=== PATIENT | male | born 1975 | race Caucasian/White ===

== ENCOUNTER 2017-12-01 11:32 | Day surgery (SDC) | payer OTHER ==
[2017-12-01] MEDS ORDERED: FENTANYL PF 100MCG/2ML VIAL IV ONE (11:33)
[2017-12-01] MEDS ORDERED: LIDOCAINE 2% MDV (20MG/ML) 20ML VIAL IV ONE (11:33)
[2017-12-01] MEDS ORDERED: PROPOFOL 10 MG/ML VIAL IV ONE (11:33)
--- NOTE | 2017-12-02 12:40 | Operative Note ---
DATE OF SURGERY: 12/01/2017 OPERATION: 1. ESOPHAGOGASTRODUODENOSCOPY with biopsy. 2. COLONOSCOPY with random biopsy and polypectomy. PREOPERATIVE DIAGNOSIS: Weight loss, diarrhea, hematochezia, right upper quadrant pain. POSTOPERATIVE DIAGNOSES: 1. Normal-appearing duodenum and stomach, rule out occult H pylori and occult celiac. 2. 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 3. Ascending colon diverticula. 4. Sigmoid colon polyps. 5. Otherwise normal colon with random biopsies. PROCEDURE: After informed consent was obtained from the patient, he was placed in the left lateral decubitus position in the endoscopy suite, sedated and monitored by the department of anesthesia. A well-lubricated [id number] gastroscope was placed in the posterior oropharynx and under direct visualization passed to the proximal esophagus. The endoscope was advanced through the proximal, mid, and distal esophagus. In the distal esophagus, there were ulcerative changes and proximal migration of the columnar border suggestive of Vanegas's as well as LA grade C/D esophagitis. There is a small hiatal hernia. The gastric body, antrum, pylorus, duodenal bulb, and sweep are unremarkable. Random duodenal biopsies were obtained to rule out occult celiac sprue, random gastric biopsies obtained to rule out H pylori. J-turn views of the proximal stomach revealed a small hiatal hernia. The endoscope was straightened and distal esophageal biopsies were obtained. The endoscope removed from the patient. Digital rectal exam was unremarkable. A well-lubricated [id number] colonoscope was inserted into the rectum and advanced to the cecum. Preparation quality was good to excellent. The cecum, terminal ileum, and ascending colon were unremarkable other than scattered diverticula in the ascending colon. The cecum and terminal ileum were unremarkable. The transverse colon and descending colon were unremarkable. Random biopsies were obtained to rule out microscopic colitis. The sigmoid colon revealed 2 polyps approximately 5-6 mm in diameter and each sessile, each removed with a cold snare with minimal bleeding noted at the sites. The remainder of the sigmoid colon and rectum were unremarkable. J-turn views of the anorectum were unremarkable. The endoscope was straightened, the rectal ampulla deflated, and the endoscope was removed. RECOMMENDATIONS: I would suggest the patient be on a [id number] PPI. He should undergo repeat endoscopy in 8 weeks, also repeat colonoscopy in 3-5 years would be suggested. Further recommendations will also be forthcoming once tissue histology is available. As always, thank you for allowing me to participate in the healthcare of your patients. CC: DO ANGEL Phillip
== END 2017-12-01 13:00 | disposition home or self-care (01) ==
LOC: HOP 11:32
PROVIDERS: ATTEND Internal Medicine Gastroenterology
DX: R63.4 Abnormal weight loss (principal); R19.7 Diarrhea, unspecified; K92.1 Melena; R10.11 Right upper quadrant pain; K22.70 Barrett's esophagus without dysplasia; D12.5 Benign neoplasm of sigmoid colon; K57.30 Diverticulosis of large intestine without perforation or abscess without bleeding; K44.9 Diaphragmatic hernia without obstruction or gangrene; J45.909 Unspecified asthma, uncomplicated
CPT/HCPCS: 45385; 43235; 00813; J3010

== ENCOUNTER 2017-12-06 10:08 | Emergency (ER) | payer OTHER ==
[2017-12-06] MEDS ORDERED: HYDROMORPHONE HCL 1 MG/ML SYRINGE IVP ONE ×2 (10:55→14:37)
[2017-12-06] MEDS ORDERED: ONDANSETRON HCL IV 4 MG/2 ML VIAL IVP ONE (10:55)
[2017-12-06 11:28] LABS: BASO % 0.6 % (0-6); EOS % 2.2 % (0-6); GRAN % 74.2 % (47-80); HEMATOCRIT 43.9 % (42.0-52.0); HEMOGLOBIN 14.9 gm/dl (14.0-18.0); LYMPH % 16.7 % (16-45); MEAN CORPUSCULAR HEMOGLOBIN 29.9 pg (27-33); MEAN CORPUSCULAR HGB CONC 33.9 g/dl (32-36); MONO % 6.3 % (0-9); PLATELET COUNT 315 K/uL (130-400); RED BLOOD COUNT 4.99 M/uL (4.40-5.70); RED CELL DISTRIBUTION WIDTH 12.9 % (11.5-14.5); URINE APPEARANCE CLEAR; URINE BILIRUBIN NEGATIVE (NEGATIVE); URINE BLOOD NEGATIVE (NEGATIVE); URINE COLOR YELLOW; URINE GLUCOSE (UA) NEGATIVE (NEGATIVE); URINE KETONE NEGATIVE (NEGATIVE); URINE LEUKOCYTE ESTERASE NEGATIVE (NEGATIVE); URINE NITRITE NEGATIVE (NEGATIVE); URINE PROTEIN NEGATIVE (NEGATIVE); URINE UROBILINOGEN 0.2 E.U./dL (0.20 - 1.00); WHITE BLOOD COUNT W/O DIFF 9.9 K/uL (4.2-12.2)
[2017-12-06 11:37] LABS: TOTAL PROTEIN 7.6 g/dL (6.6-8.7)
[2017-12-06 11:39] LABS: GLUCOSE,RANDOM 95 mg/dL (74-109)
[2017-12-06 11:42] LABS: ALBUMIN 4.9 g/dL (4.0-5.0); ALKALINE PHOSPHATASE 81 U/L (40-129); ALT/SGPT 19 U/L (<41); AST/SGOT 13 U/L (10.0-50.0); LIPASE 32 U/L (13-60)
[2017-12-06 11:43] LABS: BILIRUBIN,DIRECT < 0.2 mg/dL (0-0.3); BLOOD UREA NITROGEN 8 mg/dL (6-20)
[2017-12-06 11:44] LABS: CREATININE 0.8 mg/dL (0.7-1.2); EST GLOMERULAR FILTRATION RATE > 60 mL/min
[2017-12-06] MEDS ORDERED: MAGNESIUM HYDROXIDE/AL HYDROX 30 ML, LIDOCAINE VISC 2% 200 MG PO ONE ×2 (13:49)
--- NOTE | 2017-12-06 14:58 | Emergency Department Record ---
History of Present Illness - General Chief Complaint: Abdominal Pain Stated Complaint: ABDOMINAL PAIN Time Seen by Provider: 12/06/17 10:45 Source: Patient Mode of Arrival: Ambulatory Limitations: No limitations - History of Present Illness Initial Comments: pt is having pain in the upper abdomen that increases with inspiration. pt has had ap that has been eval by gi doctor for a long time but today it is worse then usual. pt had a recent ct, egd and colonoscopy that only revealed barretts esophagus. MD Complaint: Abdominal pain Onset/Timin -: Hour(s) Location: Epigastric, LUQ, RUQ, LLQ, RLQ Radiation: None Migration to: No migration Severity: Severe Quality: Sharp Consistency: Constant Improves With: Nothing Worsens With: Nothing Associated Symptoms: Diarrhea, Nausea - Related Data Home Medications Medication Instructions Recorded Confirmed Last Taken Mometasone/Formoterol [Dulera 200 8.8 gm IH BID 12/06/17 12/06/17 12/06/17 Mcg/5 Mcg Inhaler] Nicotine [Nicotine Patch] 1 each TD DAILY 12/06/17 12/06/17 12/06/17 Pantoprazole Sodium [Protonix] 40 mg PO BID 12/06/17 12/06/17 12/06/17 Previous Rx's Medication Instructions Recorded Albuterol Sulfate 0.083% [Neb] 3 ml NEB .EVERY 4-6 HOURS PRN #90 04/28/15 ml Albuterol Sulfate [Proair Hfa] 1 - 2 puff IH .EVERY 4-6 HOURS PRN 04/30/15 #1 inhaler Hydrocodone/Acetaminophen [[place] 1 each PO Q6HR #10 tablet 12/06/17 5-325 Tablet] Allergies Allergy/AdvReac Type Severity Reaction Status Date / Time Antihistamines - Alkylamine Allergy Intermediate ALTERED Verified 12/06/17 10:28 MENTAL STATUS Travel Screening - Travel/Exposure Within Last 30 Days Have you traveled within the last 30 days?: No - Travel/Exposure Within Last Year Have you traveled outside the [place] in the last year?: No - Additonal Travel Details Have you been exposed to anyone with a communicable illness?: No - Travel Symptoms Symptom Screening: None Review of Systems Reviewed: No additional complaints except as noted below Constitutional: Reports: As per HPI. Denies: Chills, Fever, Malaise, Night sweats, Weakness, Weight change Eyes: Reports: As per HPI. Denies: Eye discharge, Eye pain, Photophobia, Vision change ENT: Reports: As per HPI. Denies: Congestion, Dental pain, Ear pain, Epistaxis , Hearing loss, Throat pain Respiratory: Reports: As per HPI. Denies: Cough, Dyspnea, Hemoptysis, Stridor, Wheezes Cardiovascular: Reports: As per HPI. Denies: Arrhythmia, Chest pain, Dyspnea on exertion, Edema, Murmurs, Orthopnea, Palpitations, Paroxysmal nocturnal dyspnea, Rheumatic Fever, Syncope Endocrine: Reports: As per HPI. Denies: Fatigue, Heat or cold intolerance, Polydipsia, Polyuria Gastrointestinal: Reports: As per HPI. Denies: Abdominal pain, Constipation, Diarrhea, Hematemesis, Hematochezia, Melena, Nausea, Vomiting Genitourinary: Reports: As per HPI. Denies: Dysuria, Frequency, Hematuria, Incontinence, Retention, Testicular pain, Testicular mass, Urgency Musculoskeletal: Reports: As per HPI. Denies: Arthralgia, Back pain, Gout, Joint swelling, Myalgia, Neck pain Skin: Reports: As per HPI. Denies: Bruising, Change in color, Change in hair/ nails, Lesions, Pruritus, Rash Neurological: Reports: As per HPI. Denies: Abnormal gait, Confusion, Headache, Numbness, Paresthesias, Seizure, Tingling, Tremors, Vertigo, Weakness Psychiatric: Reports: As per HPI. Denies: Anxiety, Auditory hallucinations, Depression, Homicidal thoughts, Suicidal thoughts, Visual hallucinations Hematological/Lymphatic: Reports: As per HPI. Denies: Anemia, Blood Clots, Easy bleeding, Easy bruising, Swollen glands Past Medical History - SOCIAL HISTORY Smoking Status: Former smoker Alcohol Use: None Drug Use: None - RESPIRATORY Hx Respiratory Disorders: Yes Hx Asthma: Yes - CARDIOVASCULAR Hx Cardio Disorders: Yes Hx Hypertension: Yes (not currently on meds) - NEURO Hx Neuro Disorders: No - GI Hx GI Disorders: Yes Hx Abdominal Pain: Yes Hx of Polyps: Yes - Hx Genitourinary Disorders: No - ENDOCRINE Hx Endocrine Disorders: No - MUSCULOSKELETAL Hx Musculoskeletal Disorders: No - PSYCH Hx Psych Problems: No Hx Anxiety: Yes (not currently on medications) Hx Depression: Yes - HEMATOLOGY/ONCOLOGY Hx Hematology/Oncology Disorders: No Family Medical History Any Significant Family History?: No Physical Exam - General General Appearance: Alert, Oriented x3, Cooperative, Mild distress - Head Head exam: Normal inspection - Eye Eye exam: Normal appearance, PERRL, EOMI Pupils: Normal accommodation - ENT ENT exam: Normal exam, Mucous membranes moist, Normal external ear exam, Normal orophraynx Ear exam: Normal external inspection. negative: External canal tenderness Nasal Exam: Normal inspection. negative: Discharge, Sinus tenderness Mouth exam: Normal external inspection, Tongue normal Teeth exam: Normal inspection. negative: Dental caries Throat exam: Normal inspection. negative: Tonsillar erythema, Tonsillar exudate - Neck Neck exam: Normal inspection, Full ROM. negative: Tenderness - Respiratory Respiratory exam: Normal lung sounds bilaterally. negative: Respiratory distress - Cardiovascular Cardiovascular Exam: Regular rate, Normal rhythm, Normal heart sounds - GI/Abdominal GI/Abdominal exam: Soft, Normal bowel sounds, Tenderness (ruq) - Rectal Rectal exam: Deferred - exam: Deferred - Extremities Extremities exam: Normal inspection, Full ROM, Normal capillary refill. negative: Tenderness - Back Back exam: Reports: Normal inspection, Full ROM. Denies: Muscle spasm, Rash noted, Tenderness - Neurological Neurological exam: Alert, CN II-XII intact, Normal gait, Oriented X3 - Psychiatric Psychiatric exam: Normal affect, Normal mood - Skin Skin exam: Dry, Intact, Normal color, Warm Course Vital Signs 12/06/17 12/06/17 12/06/17 10:13 13:56 14:49 Temperature 98.3 F Pulse Rate 93 H Pulse Rate [ 87 78 Pulse Ox Probe] Respiratory 20 20 16 Rate Blood Pressure 129/84 Blood Pressure 132/80 136/82 [Left Arm] Pulse Ox 96 99 98 Medical Decision Making - Lab Data Result diagrams: 12/06/17 11:20 12/06/17 11:20 Lab Results 12/06/17 12/06/17 12/06/17 Range/Units 11:20 11:20 11:20 WBC 9.9 (4.2-12.2) K/uL RBC 4.99 (4.40-5.70) M/uL Hgb 14.9 (14.0-18.0) gm/dl Hct 43.9 (42.0-52.0) % MCV 88.0 (81-97) fl MCH 29.9 (27-33) pg MCHC 33.9 (32-36) g/dl RDW 12.9 (11.5-14.5) % Plt Count 315 (130-400) K/uL MPV 9.0 (7.4-10.4) fl Gran % 74.2 (47-80) % Lymphocytes % 16.7 (16-45) % Monocytes % 6.3 (0-9) % Eosinophils % 2.2 (0-6) % Basophils % 0.6 (0-6) % D-Dimer (0-0.59) mg/L FEU Sodium 144 (136-145) mmol/L Potassium 3.9 (3.4-4.5) mmol/L Chloride 104 (98-107) mmol/L Carbon Dioxide 27.0 (22-29) mmol/L Anion Gap 13.0 (7-16) BUN 8 (6-20) mg/dL Creatinine 0.8 (0.7-1.2) mg/dL Estimated GFR > 60 mL/min Random Glucose 95 (74-109) mg/dL Calcium 10.1 H (8.6-10.0) mg/dL Total Bilirubin 0.60 (0.2-1.0) mg/dL Direct Bilirubin < 0.2 (0-0.3) mg/dL AST 13 (10.0-50.0) U/L ALT 19 (<41) U/L Alkaline Phosphatase 81 (40-129) U/L Troponin T (0-0.010) ng/mL Total Protein 7.6 (6.6-8.7) g/dL Albumin 4.9 (4.0-5.0) g/dL Lipase 32 (13-60) U/L Urine Color Yellow Urine Appearance Clear Urine pH 7.5 (5.0-8.0) Ur Specific [place] 1.010 (1.002-1.030) Urine Protein Negative (NEGATIVE) Urine Glucose (UA) Negative (NEGATIVE) Urine Ketones Negative (NEGATIVE) Urine Blood Negative (NEGATIVE) Urine Nitrite Negative (NEGATIVE) Urine Bilirubin Negative (NEGATIVE) Urine Urobilinogen 0.2 (0.20 - 1.00) E.U./dL Ur Leukocyte Esterase Negative (NEGATIVE) 12/06/17 12/06/17 Range/Units 11:20 11:20 WBC (4.2-12.2) K/uL RBC (4.40-5.70) M/uL Hgb (14.0-18.0) gm/dl Hct (42.0-52.0) % MCV (81-97) fl MCH (27-33) pg MCHC (32-36) g/dl RDW (11.5-14.5) % Plt Count (130-400) K/uL MPV (7.4-10.4) fl Gran % (47-80) % Lymphocytes % (16-45) % Monocytes % (0-9) % Eosinophils % (0-6) % Basophils % (0-6) % D-Dimer 0.21 (0-0.59) mg/L FEU Sodium (136-145) mmol/L Potassium (3.4-4.5) mmol/L Chloride (98-107) mmol/L Carbon Dioxide (22-29) mmol/L Anion Gap (7-16) BUN (6-20) mg/dL Creatinine (0.7-1.2) mg/dL Estimated GFR mL/min Random Glucose (74-109) mg/dL Calcium (8.6-10.0) mg/dL Total Bilirubin (0.2-1.0) mg/dL Direct Bilirubin (0-0.3) mg/dL AST (10.0-50.0) U/L ALT (<41) U/L Alkaline Phosphatase (40-129) U/L Troponin T < 0.010 (0-0.010) ng/mL Total Protein (6.6-8.7) g/dL Albumin (4.0-5.0) g/dL Lipase (13-60) U/L Urine Color Urine Appearance Urine pH (5.0-8.0) Ur Specific [place] (1.002-1.030) Urine Protein (NEGATIVE) Urine Glucose (UA) (NEGATIVE) Urine Ketones (NEGATIVE) Urine Blood (NEGATIVE) Urine Nitrite (NEGATIVE) Urine Bilirubin (NEGATIVE) Urine Urobilinogen (0.20 - 1.00) E.U./dL Ur Leukocyte Esterase (NEGATIVE) Disposition Disposition: Discharge Clinical Impression: Abdominal pain Qualifiers: Abdominal location: upper abdomen, unspecified Qualified Code(s): R10.10 - Upper abdominal pain, unspecified Vanegas esophagus Qualifiers: Vanegas's esophagus type: without dysplasia Qualified Code(s): K22.70 - Vanegas 's esophagus without dysplasia Disposition: Home, Self-Care Condition: (1) Good Instructions: Abdominal Pain (ED), Vanegas Esophagus (ED) Additional Instructions: follow up with family doctor. return sooner if worse Prescriptions: Hydrocodone/Acetaminophen [[place] 5-325 Tablet] 1 each PO Q6HR #10 tablet Forms: Patient Portal Access Quality - Quality Measures Quality Measures: N/A - Blood Pressure Screening Does Patient Have Any of the Following: No Blood Pressure Classification: Pre-Hypertensive BP Reading Systolic Measurement: 129 Diastolic Measurement: 84 Screening for High Blood Pressure: < Pre-Hypertensive BP, F/U Documented > [ G8950] Pre-Hypertensive Follow-up Interventions: Follow-up with rescreen every year.
--- NOTE | 2017-12-07 09:32 | ULTRASOUND REPORT ---
EXAM: ULTRASOUND OF THE ABDOMEN COMPLETE HISTORY: EPIGASTRIC PAIN. PAIN IS NEAR THE RIB CAGE. DIFFICULTY IN BREATHING. TECHNIQUE: Routine ultrasound examination of the abdomen was performed. Comparison: Abdomen ultrasound dated 05/01/15. CT of the abdomen and pelvis with contrast dated 11/17/17. FINDINGS: The pancreatic tail is obscured by overlying bowel gas. The remainder of the pancreas is visualized and normal in appearance. The abdominal aorta is without aneurysmal dilatation and the intrahepatic IVC is patent. The liver is homogeneous in echotexture and there is no intra or extrahepatic biliary ductal dilatation with the common hepatic duct measuring 4 mm. The gallbladder is normal in appearance. The spleen is not enlarged and is homogeneous in echotexture. Screening evaluation of the kidneys does not demonstrate hydronephrosis nor mass with the right kidney measuring 12.2 cm in length and the left kidney measuring 11.1 cm in length. The portal vein is patent. IMPRESSION: 1. NONVISUALIZATION OF THE PANCREATIC TAIL DUE TO OVERLYING BOWEL GAS. 2. NO ABNORMALITY IS IDENTIFIED. JOB NUMBER: [id number] [facility]
--- NOTE | 2017-12-07 10:20 | RADIOLOGY REPORT ---
EXAM: CHEST, TWO VIEWS HISTORY: PAIN WITH INSPIRATION. TECHNIQUE: Upright PA and lateral views of the chest were obtained. Comparison: None. FINDINGS: The heart is not enlarged and the pulmonary vasculature is nondilated. Minor biapical lung scarring. The lungs and pleural spaces are otherwise clear. There are mild degenerative changes scattered within the visualized spine. IMPRESSION: NO RADIOGRAPHIC EVIDENCE OF ACUTE CARDIOPULMONARY DISEASE. JOB NUMBER: [id number] [facility]
== END 2017-12-06 16:06 | disposition home or self-care (01) ==
LOC: ER 10:08
DX: R10.11 Right upper quadrant pain (principal); R19.7 Diarrhea, unspecified; R11.0 Nausea; I10 Essential (primary) hypertension; Z87.891 Personal history of nicotine dependence
CPT/HCPCS: 99284 ×2; 96376; 96374; 96375; 83690; 85025; 80076; 80048; 81003; 84484; 85379; 71046; 76700; J2405; J1170

== ENCOUNTER 2018-03-28 18:49 | Emergency (ER) | payer OTHER, MEDICAID ==
--- NOTE | 2018-03-28 19:32 | Emergency Department Record ---
History of Present Illness - General Chief Complaint: Mental health evaluation Stated Complaint: MENTAL HEALTH EVAL Time Seen by Provider: 03/28/18 18:57 Source: Patient Mode of Arrival: Ambulatory Limitations: No limitations Travel/Exposure to [place] Within 21 Days of Symptoms: No - History of Present Illness Initial Comments: 42 yo male presents to ED for evaluation of worsening anxiety symptoms and feelings of hopelessness that have worsened over the course of 1 year. Patient reports that he was treated as an inpatient approximately 10 years ago for similar symptoms that did improve his mental health for some time. Patient has tried benzodiapines, SSRIs, and Zoloft which all seemed to worsen his symptoms. Patient does deny thoughts of self harm or thoughts of harming others. MD Complaint: Feels depressed Onset/Timin -: Year(s) Associated Psychiatric Symptoms: Depression History of same: Yes Quality: Constant Improves With: None Worsens With: Medication Associated Symptoms: Denies other symptoms Treatments Prior to Arrival: Other - [place] Coma Scale Eye Response: (4) Open spontaneously Motor Response: (6) Obeys commands Verbal Response: (5) Oriented Manuel Total: 15 - Related Data Home Medications Medication Instructions Recorded Confirmed Last Taken Amitriptyline HCl [Elavil] 25 mg PO DAILY 03/28/18 03/28/18 03/28/18 Eluxadoline [Viberzi] 100 mg PO BID 03/28/18 03/28/18 03/28/18 Escitalopram Oxalate [Lexapro] 10 mg PO DAILY 03/28/18 03/28/18 03/28/18 Previous Rx's Medication Instructions Recorded Albuterol Sulfate 0.083% [Neb] 3 ml NEB .EVERY 4-6 HOURS PRN #90 04/28/15 ml Albuterol Sulfate [Proair Hfa] 1 - 2 puff IH .EVERY 4-6 HOURS PRN 04/30/15 #1 inhaler Allergies Allergy/AdvReac Type Severity Reaction Status Date / Time Antihistamines - Alkylamine Allergy Intermediate ALTERED Verified 03/28/18 19:44 MENTAL STATUS Review of Systems Constitutional: Denies: Chills, Fever, Malaise, Night sweats Eyes: Denies: Eye discharge, Eye pain ENT: Denies: Congestion, Ear pain, Epistaxis Respiratory: Denies: Cough, Dyspnea Cardiovascular: Denies: Chest pain, Dyspnea on exertion Endocrine: Denies: Fatigue, Heat or cold intolerance Gastrointestinal: Denies: Abdominal pain, Nausea, Vomiting Genitourinary: Denies: Incontinence, Retention Musculoskeletal: Denies: Arthralgia, Back pain Skin: Denies: Bruising, Change in color Neurological: Reports: Tremors (resting tremors). Denies: Abnormal gait, Confusion, Headache Psychiatric: Reports: Anxiety, Depression Hematological/Lymphatic: Denies: Anemia, Blood Clots Past Medical History - SOCIAL HISTORY Smoking Status: Former smoker - RESPIRATORY Hx Respiratory Disorders: Yes Hx Asthma: Yes - CARDIOVASCULAR Hx Cardio Disorders: Yes Hx Hypertension: Yes (not currently on meds) - NEURO Hx Neuro Disorders: No - GI Hx GI Disorders: Yes Hx Abdominal Pain: Yes Hx of Polyps: Yes - Hx Genitourinary Disorders: No - ENDOCRINE Hx Endocrine Disorders: No - MUSCULOSKELETAL Hx Musculoskeletal Disorders: No - PSYCH Hx Psych Problems: No Hx Anxiety: Yes (not currently on medications) Hx Depression: Yes - HEMATOLOGY/ONCOLOGY Hx Hematology/Oncology Disorders: No Physical Exam - General General Appearance: Alert, Oriented x3, Cooperative, Anxious Limitations: No limitations - Head Head exam: Atraumatic, Normocephalic, Normal inspection Head exam detail: negative: Abrasion, Contusion, Britton's sign, General tenderness, Hematoma, Laceration - Eye Eye exam: Normal appearance. negative: Conjunctival injection, Periorbital swelling, Periorbital tenderness, Scleral icterus - ENT Ear exam: negative: Auricular hematoma, Auricular trauma Nasal Exam: negative: Active bleeding, Discharge, Dried blood, Foreign body Mouth exam: negative: Drooling, Laceration, Muffled voice, Tongue elevation - Neck Neck exam: Normal inspection. negative: Meningismus, Tenderness - Respiratory Respiratory exam: Normal lung sounds bilaterally. negative: Respiratory distress, Rhonchi, Stridor - Cardiovascular Cardiovascular Exam: Regular rate, Normal rhythm, Normal heart sounds - GI/Abdominal GI/Abdominal exam: Soft. negative: Distended, Rebound, Rigid, Tenderness - Rectal Rectal exam: Deferred - exam: Deferred - Extremities Extremities exam: Normal inspection. negative: Calf tenderness, Pedal edema, Tenderness - Back Back exam: Denies: CVA tenderness (R), CVA tenderness (L) - Neurological Neurological exam: Alert, Normal gait, Oriented X3 - Psychiatric Psychiatric exam: Anxious, Depressed - Skin Skin exam: Normal color. negative: Abrasion Type of lesion: negative: abrasion Course Vital Signs 03/28/18 19:10 Temperature 98.6 F Pulse Rate [ 76 Pulse Ox Probe] Respiratory 16 Rate Blood Pressure 119/70 [Left Arm] Pulse Ox 98 - Reevaluation(s) Reevaluation #1: 03/28/18 19:31 Patient was seen and examined, will initiate medical clearance for mental health evaluation and refer to [facility] for voluntary inpatient psychiatric placement. Reevaluation #2: 03/28/18 20:58 Labs reviewed and are grossly unremarkable for an acute process, UDS positive for Cannibis and TCAs. Patient has been medically cleared, appears stable for transfer to [facility] for voluntary inpatient placement. Medical Decision Making - Lab Data Result diagrams: 03/28/18 19:50 03/28/18 19:58 Disposition Disposition: Discharge Clinical Impression: Anxiety Depression (emotion) Qualifiers: Depression Type: unspecified Qualified Code(s): F32.9 - Major depressive disorder, single episode, unspecified Disposition: Home, Self-Care Condition: (2) Stable Additional Instructions: Go directly to [facility] for voluntary mental health evaluation. Forms: Patient Portal Access Time of Disposition: 21:09 Quality - Quality Measures Quality Measures: N/A - Blood Pressure Screening Does Patient Have Any of the Following: No Blood Pressure Classification: Normal BP Reading Systolic Measurement: 119 Diastolic Measurement: 70 Screening for High Blood Pressure: < Normal BP, F/U Not Required > [G8783]
[2018-03-28 19:45] LABS: BASO % 0.5 % (0-6); EOS % 3.1 % (0-6); GRAN % 59.6 % (47-80); HEMATOCRIT 43.6 % (42.0-52.0); HEMOGLOBIN 14.4 gm/dl (14.0-18.0); LYMPH % 28.3 % (16-45); MEAN CORPUSCULAR HEMOGLOBIN 30.1 pg (27-33); MEAN PLATELET VOLUME 8.9 fl (7.4-10.4); MONO % 8.5 % (0-9); PLATELET COUNT 270 K/uL (130-400); RED BLOOD COUNT 4.79 M/uL (4.40-5.70); RED CELL DISTRIBUTION WIDTH 13.1 % (11.5-14.5); WHITE BLOOD COUNT W/O DIFF 12.1 K/uL (4.2-12.2)
[2018-03-28 19:53] LABS: BILIRUBIN,TOTAL < 0.20 mg/dL (0.2-1.0); BLOOD UREA NITROGEN 9 mg/dL (6-20); EST GLOMERULAR FILTRATION RATE > 60 mL/min; TOTAL PROTEIN 6.8 g/dL (6.6-8.7)
[2018-03-28 19:55] LABS: GLUCOSE,RANDOM 92 mg/dL (74-109)
[2018-03-28 19:58] LABS: ACETAMINOPHEN 5.3 ug/mL (10.0-30.0); ALBUMIN 4.4 g/dL (4.0-5.0); ALKALINE PHOSPHATASE 66 U/L (40-129); ALT/SGPT 16 U/L (<41); AST/SGOT 23 U/L (10.0-50.0)
[2018-03-28 20:02] LABS: ALB/GLOB RATIO 1.8 (1.1-1.8)
[2018-03-28 20:03] LABS: SALICYLATE < 0.3 mg/dL (2.8-20)
[2018-03-28 20:21] LABS: AMPHETAMINE SCREEN URINE NOT DETECTED; BARBITURATE SCREEN URINE NOT DETECTED; BENZODIAZEPINE SCREEN URINE DETECTED; COCAINE SCREEN URINE NOT DETECTED; METHADONE SCREEN URINE NOT DETECTED; METHAMPHETAMINE SCREEN NOT DETECTED; OPIATE SCREEN URINE NOT DETECTED; OXYCODONE SCREEN URINE NOT DETECTED; PHENCYCLIDINE SCREEN URINE NOT DETECTED; PROPOXYPHENE SCREEN URINE NOT DETECTED; THC SCREEN URINE DETECTED; TRICYCLIC ANTIDEPRESSANT SCRN DETECTED
[2018-03-28 20:22] LABS: CREATININE 0.9 mg/dL (0.7-1.2)
[2018-03-28 20:44] LABS: THYROID STIMULATING HORMONE 2.75 uIU/mL (0.270-4.20)
== END 2018-03-28 21:23 | disposition home or self-care (01) ==
LOC: ER 18:49
DX: F41.9 Anxiety disorder, unspecified (principal); F32.9 Major depressive disorder, single episode, unspecified; I10 Essential (primary) hypertension; Z87.891 Personal history of nicotine dependence
CPT/HCPCS: 80053; 80305; 80320; 80329; 84443; 85025; 99284

== ENCOUNTER 2019-05-17 10:12 | Day surgery (SDC) | payer MEDICAID ==
[2019-05-17] MEDS ORDERED: LIDOCAINE 2% MDV (20MG/ML) 20ML VIAL IV ONE (10:13)
[2019-05-17] MEDS ORDERED: PROPOFOL 10 MG/ML VIAL IV ONE (10:13)
--- NOTE | 2019-05-18 09:00 | Operative Note ---
OPERATION: ESOPHAGOGASTRODUODENOSCOPY with biopsy. PREOPERATIVE DIAGNOSIS: Heartburn and history of ulcerative esophagitis, possible eosinophilic esophagitis, history of Vanegas's. POSTOPERATIVE DIAGNOSES: 1. Vanegas's. 2. Hiatal hernia. PROCEDURE: After informed consent was obtained from the patient, he was placed in the left lateral decubitus position in the endoscopy suite, sedated and monitored by the department of anesthesia. A well-lubricated [id number] gastroscope was placed in the posterior oropharynx under direct visualization and passed to the proximal esophagus. The endoscope was advanced through the proximal, mid, and distal esophagus. The GE junction demonstrated evidence of short-segment Vanegas's. No ulcers, erosions, strictures, or varices were seen. There was a moderate-size hiatal hernia. The GE junction appeared fairly patulous. I did not see evidence of esophageal sphincter tightening. There was a moderate-size hernia. The subdiaphragmatic stomach including the body and antrum as well as the pylorus, duodenal bulb, and sweep were unremarkable. J-turn views of the proximal stomach revealed a hiatal hernia. The endoscope was straightened again. The GE junction appeared quite patulous. Biopsies were obtained from the columnar portion of the GE junction. Mid esophageal biopsies were also obtained. The endoscope was removed from the patient with no new findings noted. RECOMMENDATIONS: At this point, I would be concerned about reducing his PPI to once daily given the findings and the history. I would suggest he continue on his current medical program and will await the results of biopsies. As always, thank you for allowing me to participate in the healthcare of your patients. NAGEL
== END 2019-05-17 11:47 | disposition home or self-care (01) ==
LOC: HOP 10:12
PROVIDERS: ATTEND Internal Medicine Gastroenterology
DX: R12 Heartburn (principal); K22.70 Barrett's esophagus without dysplasia; K44.9 Diaphragmatic hernia without obstruction or gangrene; Z87.19 Personal history of other diseases of the digestive system; K21.9 Gastro-esophageal reflux disease without esophagitis; J45.909 Unspecified asthma, uncomplicated

== ENCOUNTER 2019-07-02 07:45 | Emergency (ER) | payer MEDICAID ==
[2019-07-02] MEDS ORDERED: KETOROLAC 60 MG/2 ML VIAL IM STA (08:05)
--- NOTE | 2019-07-02 08:05 | Emergency Department Record ---
History of Present Illness - General Chief Complaint: Back Pain/Injury Stated Complaint: RIB PAIN/FALL Time Seen by Provider: 07/02/19 07:58 Source: Patient Mode of Arrival: Ambulatory Limitations: No limitations - History of Present Illness Initial Comments: Pt from home where this AM he tripped "on my towel and fell to the floor hitting my ribs". Pt with sharp severe pain to left lower ribs. Hurts to move or to breath deeply. No head or neck pains. No other injury. No feeling of light headed, dizzy, CP prior to fall. "I tripped". Did not hit anything but the floor. Onset/Timin -: Minutes(s) Similar Symptoms Previously: No Place: Home Severity scale (1-10): 7 Quality: Aching Consistency: Constant Improves With: None Worsens With: Deep breaths/cough Context: Fall - Related Data Previous Rx's Medication Instructions Recorded Albuterol Sulfate [Proair Hfa] 1 - 2 puff IH .EVERY 4-6 HOURS PRN 04/30/15 #1 inhaler Hydrocodone/Acetaminophen [Ladora 1 each PO Q4HR PRN 4 Days #12 07/02/19 5-325 Tablet] tablet Ibuprofen [Motrin] 800 mg PO Q8H PRN 5 Days #40 tab 07/02/19 Allergies Allergy/AdvReac Type Severity Reaction Status Date / Time Antihistamines - Alkylamine Allergy Intermediate ALTERED Verified 07/02/19 07:55 MENTAL STATUS Travel Screening - Travel/Exposure Within Last 30 Days Have you traveled within the last 30 days?: No - Travel/Exposure Within Last Year Have you traveled outside the [place] in the last year?: No - Additonal Travel Details Have you been exposed to anyone with a communicable illness?: No - Travel Symptoms Symptom Screening: None Review of Systems Constitutional: Denies: Chills, Fever Eyes: Denies: Eye discharge ENT: Denies: Congestion Respiratory: Denies: Cough Cardiovascular: Denies: Arrhythmia Endocrine: Denies: Fatigue Gastrointestinal: Denies: Abdominal pain, Nausea, Vomiting Genitourinary: Denies: Discharge Musculoskeletal: Reports: As per HPI Skin: Denies: Bruising, Rash Neurological: Denies: Headache, Numbness Psychiatric: Denies: Anxiety Hematological/Lymphatic: Denies: Anemia Past Medical History - SOCIAL HISTORY Smoking Status: Former smoker Alcohol Use: None Drug Use: None - RESPIRATORY Hx Respiratory Disorders: Yes Hx Asthma: Yes - CARDIOVASCULAR Hx Cardio Disorders: Yes Hx Hypertension: Yes (not currently on meds) - NEURO Hx Neuro Disorders: No - GI Hx GI Disorders: Yes Hx Abdominal Pain: Yes Hx Reflux: Yes Hx Irritable Bowel: Yes Hx of Polyps: Yes - Hx Genitourinary Disorders: No - ENDOCRINE Hx Endocrine Disorders: No - MUSCULOSKELETAL Hx Musculoskeletal Disorders: Yes Hx Arthritis: Yes (knees, back) - PSYCH Hx Psych Problems: Yes Hx Anxiety: Yes (not currently on medications) Hx Depression: Yes - HEMATOLOGY/ONCOLOGY Hx Hematology/Oncology Disorders: No Family Medical History Any Significant Family History?: No Physical Exam - General General Appearance: Alert, Oriented x3, Cooperative, Moderate distress - Head Head exam: Atraumatic Head exam detail: negative: Abrasion, Contusion - Eye Eye exam: Normal appearance, PERRL - ENT ENT exam: Normal exam, Mucous membranes moist, Normal external ear exam, Normal orophraynx, TM's normal bilaterally - Neck Neck exam: Normal inspection, Full ROM. negative: Tenderness - Respiratory Respiratory exam: Normal lung sounds bilaterally, Chest wall tenderness (left posterior chest wall without bruising or crepitence, + point tender ness over posterior lateral lower ribs. ). negative: Respiratory distress, Rhonchi, Wheezes - Cardiovascular Cardiovascular Exam: Regular rate, Normal rhythm. negative: Tachycardia Peripheral Pulses: 2+: Radial (R), Radial (L) - GI/Abdominal GI/Abdominal exam: Soft, Normal bowel sounds. negative: Tenderness - Extremities Extremities exam: Normal inspection, Full ROM. negative: Pedal edema, Tenderness - Back Back exam: Reports: Tenderness (as above to left posterior ribs. ) - Neurological Neurological exam: Alert, Normal gait, Oriented X3 - Psychiatric Psychiatric exam: Normal affect, Normal mood - Skin Skin exam: Normal color. negative: Erythema, Rash Course Vital Signs 07/02/19 07:50 Temperature 97.8 F Pulse Rate 95 H Respiratory 20 Rate Blood Pressure 117/79 Pulse Ox 97 - Reevaluation(s) Reevaluation #1: 07/02/19 08:27 CXR neg for pneumothorax. No obvious fx of rib on XR but clinically suggests fx rib. Discussed care for home. Pt comfortable with plan. Medical Decision Making - Data Complexity MDM Data: X-Ray Ordered and/or Reviewed Disposition Disposition: Discharge Clinical Impression: Closed rib fracture, Fall Disposition: Home, Self-Care Condition: (2) Stable Instructions: Rib Fracture (ED) Additional Instructions: Splint left side with a pillow and do deep inspirations every 15 minutes. Pain control with Motrin and then Ladora at bedtime. Family doctor recheck in 3 days. Return to the ED as needed. Prescriptions: Hydrocodone/Acetaminophen [Ladora 5-325 Tablet] 1 each PO Q4HR PRN 4 Days #12 tablet PRN Reason: Pain - Moderate (5-7) Ibuprofen [Motrin] 800 mg PO Q8H PRN 5 Days #40 tab PRN Reason: Pain - Mod To Severe (5-10) Forms: Patient Portal Access Time of Disposition: 08:36 Quality - Quality Measures Quality Measures: N/A, Adult Sinusitis (>18yr) - Adult Sinusitis: Abx Overuse Quality Measure: Measure #331: Adult Sinusitis Abx Overuse ICD10 Codes Entered: Yes Onset of symptoms over 10 days: Yes Presumed Bacterial: No Antibiotic Prescribed: No Adult Sinusitis: Antibiotic Within 10 Days of Symptoms: <Antibiotic NOT Prescribed Within 10 Days> [G9287] - Adult Sinusitis: Bacterial w/Abx Quality Measure: Measure #332: Adult Bacterial Sinusitis Correct Abx Use ICD10 Codes Entered: Yes Adult Sinusitis: Appropriate Antibiotic: Exclusion, Not Bacterial - Adult Sinusitis: CT Use Quality Measure: Measure #333: Adult Sinusitis ICD10 Codes Entered: Yes Adult Sinusitis: CT for Acute Sinusitis: < CT NOT ordered or received within 28 Days > [G9350] - Blood Pressure Screening Does Patient Have Any of the Following: No Blood Pressure Classification: Normal BP Reading Systolic Measurement: 117 Diastolic Measurement: 79 Screening for High Blood Pressure: < Normal BP, F/U Not Required > [G8783]
[2019-07-02] MEDS ORDERED: KETOROLAC 30 MG/ML VIAL IVP ONE (08:23)
--- NOTE | 2019-07-02 12:40 | RADIOLOGY REPORT ---
EXAM: CHEST , TWO VIEWS HISTORY: LEFT LOWER POSTERIOR RIB PAIN AFTER FALL, PINPOINT SHARP AND SEVERE. TECHNIQUE: Two views of the chest were obtained. Comparison: No prior exams available for comparison. FINDINGS: Mild hyperaeration changes are present with mild apical pleural thickening. No focal consolidation, pneumothorax, or pleural effusions identified. No acute displaced fracture is identified or suspicious left sided sided pleural thickening. Lingular atelectasis versus scarring noted. The heart size is within normal limits. IMPRESSION: 1. NO ACUTE CARDIOPULMONARY PROCESS IDENTIFIED. 2. NO ACUTE DISPLACED FRACTURE, PNEUMOTHORAX OR PLEURAL EFFUSION. JOB NUMBER: [id number] MTDD
== END 2019-07-02 08:46 | disposition home or self-care (01) ==
LOC: ER 07:45
DX: S22.39XA Fracture of one rib, unspecified side, initial encounter for closed fracture (principal); W18.39XA Other fall on same level, initial encounter
CPT/HCPCS: 71046; 96374; 96376; 99283; 99284; J1885